=== PATIENT | female | born 1955 | race African-American/Black ===

== ENCOUNTER 2022-12-21 10:02 | Emergency (ER) | payer MEDICARE, MEDICAID ==
[~2022-12-21] VITALS: Ht 162.6 cm; Wt 59.0 kg
[2022-12-21 10:42] LABS: BASOPHILS % 0.6 % (0.0-2.0); EOSINOPHILS % 0.5 % (0.0-5.0); HEMATOCRIT. 39.4 % (36.0-48.0); HEMOGLOBIN. 13.2 g/dL (12.0-16.0); LYMPHOCYTES % 27.4 % (20.0-50.0); MEAN CORPUSCULAR HEMOGLOBIN 31.1 pg (28.0-32.0); MEAN CORPUSCULAR VOLUME 93.1 fL (81.0-99.0); MEAN PLATELET VOLUME 7.1 fl (7.4-10.4); MONOCYTES % 9.2 % (2.0-8.0); NEUTROPHILS % 62.3 % (40.0-76.0); PLATELET 355 x1000/uL (130-400); RED BLOOD CELL COUNT 4.23 mill/uL (4.2-5.4); RED CELL DISTRIBUTION WIDTH 14.5 % (11.6-14.6)
[2022-12-21 10:50] LABS: CHLORIDE 105 mEq/L (98-107)
[2022-12-21 11:00] VITALS: BP 116/87
== END 2022-12-21 14:30 | disposition home or self-care (01) ==
LOC: ER 10:02
DX: B34.9 Viral infection, unspecified (principal); R55 Syncope and collapse
CPT/HCPCS: 36415; 71045; 80053; 83880; 84484; 85025; 93005; 99285

== ENCOUNTER 2024-01-13 09:24 | Emergency (ER) | payer MEDICARE, MEDICAID ==
[~2024-01-13] VITALS: Ht 160 cm; Wt 80.0 kg
[2024-01-13 09:25] VITALS: O2SAT 97
[2024-01-13] MEDS: ACETAMINOPHEN 325MG TABLET PO ONE (09:45)
[2024-01-13] MEDS: AMLODIPINE 10MG TABLET PO ONE (09:45)
[2024-01-13 10:32] LABS: BASOPHILS % 0.3 % (0.0-2.0); EOSINOPHILS % 0.7 % (0.0-5.0); HEMATOCRIT. 42.2 % (36.0-48.0); LYMPHOCYTES % 22.8 % (20.0-50.0); MEAN CORPUSCULAR HEMOGLOBIN 31.1 pg (28.0-32.0); MEAN CORPUSCULAR HGB CONC 33.1 g/dL (31.0-37.0); MEAN CORPUSCULAR VOLUME 93.9 fL (81.0-99.0); MEAN PLATELET VOLUME 7.6 fl (7.4-10.4); NEUTROPHILS % 69.2 % (40.0-76.0); PLATELET 262 x1000/uL (130-400); RED BLOOD CELL COUNT 4.49 mill/uL (4.2-5.4); RED CELL DISTRIBUTION WIDTH 13.9 % (11.6-14.6); WHITE BLOOD COUNT 6.5 x1000/uL (4.5-11.0)
[2024-01-13 10:52] LABS: ALANINE AMINOTRANSFERASE 25 IU/L (10-49); ALBUMIN 4.6 g/dL (3.2-4.8); ASPARTATE AMINOTRANSFERASE 51 IU/L (<34); BILIRUBIN TOTAL 0.6 mg/dL (0.1-1.0); CALCIUM 9.2 mg/dL (8.7-10.4); CARBON DIOXIDE 24 mEq/L (21-32); CHLORIDE 103 mEq/L (98-107); CREATININE 0.6 mg/dL (0.6-1.0); GLUCOSE 148 mg/dL (70-105); POTASSIUM 3.2 mEq/L (3.5-5.1); PROTEIN TOTAL 7.9 g/dL (6.0-8.3); SODIUM 135 mEq/L (136-145); UREA NITROGEN BLOOD 12 mg/dL (9-23)
[2024-01-13] MEDS: POTASSIUM CHLORIDE 20MEQ TABLET SR PO ONE (11:43)
[2024-01-13] MEDS ORDERED: AMLO10TA4 MT (12:06)
[2024-01-13 13:02] VITALS: BP 158/82; PULSE 62; RESP 19; TEMP 98.5
== END 2024-01-13 13:00 | disposition home or self-care (01) ==
LOC: ER 09:35
DX: I10 Essential (primary) hypertension (principal); M79.651 Pain in right thigh
CPT/HCPCS: 36415; 71045; 72170; 80053; 85025; 93005; 99285

== ENCOUNTER 2024-01-13 17:07 | Emergency (ER) | payer MEDICAID, MEDICARE ==
[~2024-01-13] VITALS: Ht 160 cm; Wt 55.0 kg
[~2024-01-13 17:07] MED LIST: AMLO10TA4 MT
[2024-01-13 17:29] VITALS: BP 144/85; RESP 20; TEMP 98; O2SAT 100
[2024-01-13 17:31] VITALS: PULSE 87
== END 2024-01-13 18:00 | disposition left against medical advice (07) ==
LOC: ER 17:07
DX: F23 Brief psychotic disorder (principal); Z53.21 Procedure and treatment not carried out due to patient leaving prior to being seen by health care provider
CPT/HCPCS: 99281